=== PATIENT | male | born 1975 | race Two or more races ===

== ENCOUNTER 2023-04-18 10:58 | Emergency (ER) | payer OTHER ==
[~2023-04-18] VITALS: Ht 162.6 cm; Wt 67.6 kg
[2023-04-18] MEDS ORDERED: AVAPRO75 MG PO (11:05)
[2023-04-18 12:00] LABS: HEMATOCRIT 38.9 % (39.0-48.0); HEMOGLOBIN 13.1 g/dL (13-16.00); MEAN CELL VOLUME 92.3 fL (80.0-100.00); MEAN CORPUSCULAR HGB CONC 33.5 g/dl (32.0-36.0); PLATELET COUNT 328 K/uL (150-450); RED BLOOD COUNT 4.22 M/uL (4.00-6.00); RED CELL DISTRIBUTION WIDTH 12.9 % (11.5-14.5)
[2023-04-18 12:30] LABS: URINE APPEARANCE Clear; URINE BILIRRUBIN Negative (NEGATIVE); URINE BLOOD Moderate; URINE GLUCOSE Negative (NEGATIVE); URINE LEUKOCYTE Negative; URINE NITRATE Negative; URINE PROTEIN Negative (NEGATIVE); URINE UROBILINOGEN 0.2 E.U./dl
[2023-04-18 12:44] LABS: URINE BACTERIA 11.3 uL (0.0-1933); URINE RBC 416.4 uL (0.0-20.8); URINE WBC 6.1 uL (0.0-23.2)
== END 2023-04-18 15:50 | disposition home or self-care (01) ==
LOC: ER 10:59
PROVIDERS: Emergency Medicine
DX: R10.84 Generalized abdominal pain (principal)

== ENCOUNTER 2025-01-11 10:07 | Inpatient (IN) | payer OTHER ==
[~2025-01-11] VITALS: Ht 162.6 cm; Wt 69.9 kg
[~2025-01-11 10:07] MED LIST: AVAPRO75 MG PO
--- NOTE | 2025-01-11 11:10 | NUR ---
PACIENTE ALERTA Y ORIENTADO X 3. REFIERE DESDE LAS 6AM DOLOR ABDOMINAL, VOMITOS X 5 Y DIARREAS X 4.
[2025-01-11] MEDS ORDERED: ONDANSETRON HCL 2 MG/ML VIAL IV ONE (11:30)
[2025-01-11] MEDS ORDERED: 0.9 % SODIUM CHLORIDE 1,000 ML IV SCH (11:30)
[2025-01-11] MEDS ORDERED: FAMOtidine 10 MG/ML (4ML VIAL) IV PUSH ONE (11:30)
[2025-01-11] MEDS ORDERED: KETOROLAC TROMETHAMINE 15 MG VIAL IU ONE (11:45)
--- NOTE | 2025-01-11 12:21 | NUR ---
SE ORIENTA A PACIENTE SOBRE TRATAMIENTO MEDICO EL VERBALIZA COMPRENDER INSTRUCCIONES OFRECIDAS, BAJO MEDIDAS ASEPTICAS SE LEYDA MUESTRAS DE SHU.SE ADMINISTRAN MEDICAMENTOS SEHUN ORDEN MEDICA
[2025-01-11 12:25] LABS: BASO % 0.2 % (0.1-1.2); EOS # 0.03 (0.04-0.54); EOS % 0.1 % (0.7-7.0); LYMPH # 0.35 (1.18-3.74); LYMPH % 1.7 % (19.3-53.1); MEAN PLATELET VOLUME 9.60 fl (9.4-12.4); MONO # 0.82 (0.24-0.82); MONO % 4.0 % (4.7-12.5); NEUT # 19.14 (1.56-6.13); NEUT % 93.5 % (34.0-71.1); RED CELL DISTRIBUTION WIDTH 11.8 % (11.6-14.4)
[2025-01-11 12:44] LABS: URINE APPEARANCE Clear; URINE BILIRRUBIN Negative (NEGATIVE); URINE BLOOD Negative; URINE COLOR Dark Yellow; URINE GLUCOSE Negative (NEGATIVE); URINE LEUKOCYTE Negative; URINE NITRATE Negative; URINE PROTEIN 30 (NEGATIVE); URINE UROBILINOGEN 0.2 E.U./dl
[2025-01-11 12:47] LABS: URINE BACTERIA 23.9 uL (0.0-1933); URINE CAST 9.67 uL (0.0-1.40); URINE EPITHELIAL CELLS 16.4 uL (0.0-38.8); URINE RBC 2.3 uL (0.0-20.8); URINE WBC 7.9 uL (0.0-23.2)
[2025-01-11 12:48] LABS: INR 0.99
[2025-01-11 12:51] LABS: ALT/SGPT 35.0 U/L (12-78); AST/SGOT 23.0 U/L (15-37); BILIRUBIN TOTAL 0.6 mg/dL (0.3-1.2); BUN CREA RATIO 25.0 (7.0-25.0); CREATININE SERUM 0.97 mg/dL (0.70-1.30); GFR 81.59; GLOBULINA 4.0 G/DL (2.4-3.5); GLUCOSE FASTING 143.0 mg/dL (65-100); OSMOLALITY SERUM 288.0 MOSM/KG (275-295)
[2025-01-11 12:56] LABS: URINE KETONE 80 (NEGATIVE)
[2025-01-11 12:57] LABS: URINE MUCUS MODERATE
[2025-01-11] MEDS ORDERED: CIPROFLOXACIN IN 5 % DEXTROSE 200 ML IV SCH (14:48)
[2025-01-11] MEDS ORDERED: FAMOTIDINE/PF 20 MG in 0.9 % SODIUM CHLORIDE 8 ML IV PUSH SCH (17:34)
[2025-01-11] MEDS ORDERED: ENOXAPARIN SODIUM 40 MG/0.4 ML SYRINGE SUBCUTANEO SCH (17:39)
[2025-01-11] MEDS ORDERED: IRBESARTAN 75 MG TABLET PO SCH (17:39)
[2025-01-11] MEDS ORDERED: KETOROLAC TROMETHAMINE 30 MG VIAL IV PRN (17:45)
[2025-01-11] MEDS ORDERED: MORPHINE SULFATE 2 MG/ML SYRINGE IV PRN (17:45)
[2025-01-11] MEDS ORDERED: ONDANSETRON HCL 4 MG in 0.9 % SODIUM CHLORIDE 50 ML IV PRN (17:45)
[2025-01-11 22:34] VITALS: BP 111/56; O2SAT 98
[2025-01-12 00:30] VITALS: BP 102/62; O2SAT 100
[2025-01-12 08:15] VITALS: BP 111/63; O2SAT 100
[2025-01-12 16:53] VITALS: BP 114/64; O2SAT 97
[2025-01-12 23:58] VITALS: BP 111/62; O2SAT 99
[2025-01-13 06:20] LABS: BASO % 0.4 % (0.1-1.2); EOS # 0.34 (0.04-0.54); EOS % 3.7 % (0.7-7.0); LYMPH # 2.18 (1.18-3.74); LYMPH % 23.8 % (19.3-53.1); MEAN PLATELET VOLUME 11.40 fl (9.4-12.4); MONO # 0.77 (0.24-0.82); MONO % 8.4 % (4.7-12.5); NEUT # 5.79 (1.56-6.13); NEUT % 63.4 % (34.0-71.1); RED CELL DISTRIBUTION WIDTH 12.4 % (11.6-14.4)
[2025-01-13 06:45] LABS: ALT/SGPT 26.0 U/L (12-78); AST/SGOT 18.0 U/L (15-37); BILIRUBIN TOTAL 0.49 mg/dL (0.3-1.2); BUN CREA RATIO 18.0 (7.0-25.0); CREATININE SERUM 0.97 mg/dL (0.70-1.30); GFR 81.59; GLOBULINA 3.2 G/DL (2.4-3.5); GLUCOSE FASTING 80.0 mg/dL (65-100); OSMOLALITY SERUM 284.0 MOSM/KG (275-295)
[2025-01-13 08:15] VITALS: BP 119/66; O2SAT 97
[2025-01-14 23:07] LABS: GIARDIA LAMBLIA EIA Negative (Negative)
== END 2025-01-13 19:11 | disposition home or self-care (01) | DRG 392 ==
LOC: ER 10:08 → SEC-K 18:01 → SURG 18:01
PROVIDERS: General Practice; Internal Medicine Infectious Disease; ADMIT Internal Medicine; ATTEND Internal Medicine
PROC: BW21ZZZ Computerized Tomography (CT Scan) of Abdomen and Pelvis (ICD-10-PCS; principal; 2025-01-11)
DX: A09 Infectious gastroenteritis and colitis, unspecified (principal); K56.7 Ileus, unspecified